=== PATIENT | female | born 1995 | race Caucasian/White ===

== ENCOUNTER 2018-12-08 19:38 | Emergency (ER) | payer OTHER ==
--- NOTE | 2018-12-08 22:18 | ED Physician Documentation ---
PD HPI FEMALE - Stated complaint Stated Complaint: FEM BLEEDING/7WKS PREG - Chief complaint Chief Complaint: Abd Pain - History obtained from History obtained from: Patient - History of Present Illness Timing - onset: Today (tonight) Timing - details: Abrupt onset Pain level max: 0 Pain level max: 0 Associated symptoms: Vaginal bleeding. 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 This is her first . Tonight, after urinating she noticed blood on toilet paper when she wiped. She is approximately 6-7 weeks . Review of Systems Constitutional: denies: Fever GI: denies: Abdominal Pain, Nausea, Vomiting : reports: Vaginal bleeding, Now EGA (6-7 weeks). denies: Dysuria, Frequency Musculoskeletal: denies: Back pain PD PAST MEDICAL HISTORY - Past Medical History Past Medical History: No - Past Surgical History Past Surgical History: No - Allergies Allergies/Adverse Reactions: Allergies Allergy/AdvReac Type Severity Reaction Status Date / Time No Known Drug Allergies Allergy Verified 12/08/18 22:00 - Living Situation Living Arrangement: reports: At home PD ED PE NORMAL - Vitals Vital signs reviewed: Yes - General General: Alert and oriented X 3, No acute distress, Well developed/nourished - Cardiac Cardiac: RRR, No murmur - Respiratory Respiratory: No respiratory distress - Abdomen Abdomen: Soft, Non tender - Back Back: No CVA TTP Results - Vitals Vitals: Vital Signs - 24 hr 12/08/18 12/09/18 21:57 00:00 Temperature 36.7 C 36.5 C Heart Rate 100 87 Respiratory 16 16 Rate Blood Pressure 143/82 H 125/53 L O2 Saturation 100 99 Oxygen O2 Source Room air - Labs Labs: Laboratory Tests 12/08/18 12/08/18 12/08/18 22:32 22:32 23:00 WBC 6.0 RBC 4.43 Hgb 14.0 Hct 39.4 MCV 88.9 MCH 31.6 H MCHC 35.5 RDW 13.5 Plt Count 201 MPV 8.8 Neut # (Auto) 3.7 Lymph # (Auto) 1.5 [place] # (Auto) 0.6 Eos # (Auto) 0.1 Baso # (Auto) 0.0 Absolute Nucleated RBC 0.00 Nucleated RBC % 0.0 HCG, Quant 3663.00 Urine Color YELLOW Urine Clarity HAZY Urine pH 5.5 Ur Specific [place] >=1.030 H Urine Protein NEGATIVE Urine Glucose (UA) NEGATIVE Urine Ketones TRACE Urine Occult Blood LARGE H Urine Nitrite NEGATIVE Urine Bilirubin NEGATIVE Urine Urobilinogen 0.2 (NORMAL) Ur Leukocyte Esterase NEGATIVE Urine RBC 6-10 H Urine WBC 0-3 Ur Squamous Epith Cells MANY Squamous H Urine Bacteria Few Urine Mucus Moderate Strands Ur Microscopic Review INDICATED Urine Culture Comments NOT INDICATED - Rads (name of study) pelvic/TV US Radiology: Prelim report reviewed, See rad report PD MEDICAL DECISION MAKING - ED course Complexity details: reviewed results, re-evaluated patient, considered differential, d/w patient ED course: Patient's blood type is O+. She did not have any symptoms nor bleeding during ED evaluation. Departure - Departure Disposition: 01 Home, Self Care Clinical Impression: Vaginal bleeding in Condition: Good Instructions: ED Miscarriage Poss Follow-Up: SANJAY Hernandez [Provider Group] Discharge Date/Time: 12/09/18 00:30
[2018-12-08 22:41] LABS: BASOPHILS % (AUTO) 0.7 %; EOSINOPHILS # (AUTO) 0.1 10^3/uL (0.0-0.7); EOSINOPHILS % (AUTO) 1.6 %; LYMPHOCYTES # (AUTO) 1.5 10^3/uL (1.5-3.5); MEAN CORPUSCULAR HEMOGLOBIN 31.6 pg (27.0-31.0); MEAN CORPUSCULAR HGB CONC 35.5 g/dL (32.0-36.0); MEAN CORPUSCULAR VOLUME 88.9 fL (81.0-99.0); MEAN PLATELET VOLUME 8.8 fL (7.9-10.8); MONOCYTES # (AUTO) 0.6 10^3/uL (0.0-1.0); MONOCYTES % (AUTO) 10.4 %; NEUTROPHILS # (AUTO) 3.7 10^3/uL (1.5-6.6); NEUTROPHILS % (AUTO) 62.3 %; PLT - PLATELET COUNT 201 10^3/uL (130-450); RED BLOOD COUNT 4.43 10^6/uL (4.20-5.40); RED CELL DISTRIBUTION WIDTH 13.5 % (12.0-15.0)
[2018-12-08 23:34] LABS: BILIRUBIN,URINE NEGATIVE (NEGATIVE); GLUCOSE, URINE (UA) NEGATIVE (NEGATIVE); KETONES,URINE (UA) TRACE mg/dL (NEGATIVE); LEUKOCYTE ESTERASE, URINE NEGATIVE (NEGATIVE); NITRITE,URINE NEGATIVE (NEGATIVE); OCCULT BLOOD,URINE LARGE (NEGATIVE); PH,URINE 5.5 PH (5.0-7.5); PROTEIN,URINE NEGATIVE (NEGATIVE); UROBILINOGEN,URINE 0.2 (NORMAL) E.U./dL (NORMAL)
[2018-12-08 23:44] LABS: CLARITY,URINE HAZY (CLEAR); SQUAMOUS EPITHELIAL CELL,UR MANY Squamous (<= Few)
--- NOTE | 2018-12-08 23:44 | Ultrasound Report ---
Reason: , vaginal bleeding Procedure Date: 12/08/2018 Accession Number: [id number] / [id number] Procedure: US - OB First Trimester CPT Code: FULL RESULT: EXAM: FIRST TRIMESTER OBSTETRIC ULTRASOUND (Less than 11 weeks) EXAM DATE: 12/08/2018 10:50 PM. CLINICAL HISTORY: , vaginal bleeding. LMP: 10/23/2018. COMPARISONS: None. TECHNIQUE: Transabdominal and transvaginal ultrasound examination with static image documentation. CLINICAL DATES: EGA 6 weeks 4 days with MELISSA 07/30/2019 based on LMP. ASSESSMENT: Gestational Sac: Single intrauterine. Mean gestational sac diameter: 7 mm. Embryo: CRL (crown-rump length) 3 mm = 6 weeks 0 days. Cardiac activity: To early to visualize Yolk sac: Not visualized. Amniotic fluid: Not accurately assessed at this gestational age. Early placenta: Not visible at this gestational age. Other: No perigestational fluid collection demonstrated. MATERNAL STRUCTURES: Uterus: Anteverted. Unremarkable. Cervix: Closed. Right Ovary/Adnexa: The ovary measures 2.8 x 2.0 x 1.6 cm, volume 5 cc. 1.2 cm corpus luteum.. Left Ovary/Adnexa: The ovary measures 2.3 x 1.5 x 1.2 cm, volume 2 cc. Unremarkable. Free Fluid: None. Other: None. IMPRESSION: 1. Gestational sac within the endometrial canal, with possible pole visualized. By mean sac diameter, it is too early for visualization of yolk sac or heart motion. No evidence of darrell-gestational hemorrhage. Recommend follow-up serial quantitative beta hCG, and rescan in 5-7 days for viability, if clinically warranted. RADIA
[2018-12-08 23:45] LABS: BACTERIA,URINE Few /HPF (None Seen); MUCUS,URINE Moderate Strands
--- NOTE | 2018-12-08 23:45 | Ultrasound Report ---
Reason: , vaginal bleeding Procedure Date: 12/08/2018 Accession Number: [id number] / [id number] Procedure: US - OB Transvaginal CPT Code: FULL RESULT: EXAM: FIRST TRIMESTER OBSTETRIC ULTRASOUND (Less than 11 weeks) EXAM DATE: 12/08/2018 10:50 PM. CLINICAL HISTORY: , vaginal bleeding. LMP: 10/23/2018. COMPARISONS: None. TECHNIQUE: Transabdominal and transvaginal ultrasound examination with static image documentation. CLINICAL DATES: EGA 6 weeks 4 days with MELISSA 07/30/2019 based on LMP. ASSESSMENT: Gestational Sac: Single intrauterine. Mean gestational sac diameter: 7 mm. Embryo: CRL (crown-rump length) 3 mm = 6 weeks 0 days. Cardiac activity: To early to visualize Yolk sac: Not visualized. Amniotic fluid: Not accurately assessed at this gestational age. Early placenta: Not visible at this gestational age. Other: No perigestational fluid collection demonstrated. MATERNAL STRUCTURES: Uterus: Anteverted. Unremarkable. Cervix: Closed. Right Ovary/Adnexa: The ovary measures 2.8 x 2.0 x 1.6 cm, volume 5 cc. 1.2 cm corpus luteum.. Left Ovary/Adnexa: The ovary measures 2.3 x 1.5 x 1.2 cm, volume 2 cc. Unremarkable. Free Fluid: None. Other: None. IMPRESSION: 1. Gestational sac within the endometrial canal, with possible pole visualized. By mean sac diameter, it is too early for visualization of yolk sac or heart motion. No evidence of darrell-gestational hemorrhage. Recommend follow-up serial quantitative beta hCG, and rescan in 5-7 days for viability, if clinically warranted.
[2018-12-09 00:31] VITALS: BP 125/53
== END 2018-12-09 00:30 | disposition home or self-care (01) ==
LOC: ED 19:38
DX: O46.91 Antepartum hemorrhage, unspecified, first trimester (principal); Z3A.01 Less than 8 weeks gestation of pregnancy
CPT/HCPCS: 36415; 76801; 76817; 81001; 81003; 84702; 85025; 87086; 99283